=== PATIENT | male | born 1985 | race Hispanic/Latino ===

== ENCOUNTER 2017-12-24 09:39 | Emergency (ER) | payer OTHER, SELFPAY ==
[2017-12-24] MEDS ORDERED: TETANUS/DIPHTHERIA TOXOID [ADULT] 0.5 ML VIAL IM ONE (10:15)
== END 2017-12-24 10:46 | disposition home or self-care (01) ==
LOC: EDH 09:39
DX: S61.210A Laceration without foreign body of right index finger without damage to nail, initial encounter (principal); X58.XXXA Exposure to other specified factors, initial encounter; Y93.89 Activity, other specified; Y92.89 Other specified places as the place of occurrence of the external cause; Y99.8 Other external cause status
CPT/HCPCS: 73140; 90471; 90714

== ENCOUNTER 2022-07-26 16:08 | Emergency (ER) | payer OTHER, SELFPAY ==
[~2022-07-26] VITALS: Ht 182.9 cm; Wt 108.9 kg
[2022-07-26 16:10] VITALS: BP 146/83
[2022-07-26] MEDS ORDERED: TETANUS/DIPHTHERIA TOXOID [ADULT] 0.5 ML VIAL IM ONE (17:00)
== END 2022-07-26 17:30 | disposition home or self-care (01) ==
LOC: EDH 16:08
DX: S81.852A Open bite, left lower leg, initial encounter (principal); W54.0XXA Bitten by dog, initial encounter; Y93.89 Activity, other specified; Y92.89 Other specified places as the place of occurrence of the external cause; Y99.8 Other external cause status
CPT/HCPCS: 90471; 90714